=== PATIENT | male | born 1975 | race Caucasian/White ===

== ENCOUNTER 2021-11-25 15:40 | Observation (INO) | payer OTHER ==
--- NOTE | 2021-11-25 16:34 | ED Physician Documentation ---
History of Present Illness - Stated complaint Stated Complaint: TIRED,HEADACHES,SWOLLEN FEET - Chief complaint Chief Complaint: General - History obtained from History obtained from: Patient - History of Present Illness Pain level max: 0 Pain level now: 0 - Additonal information Additional information: Patient is a 46-year-old male who was sent in by the walk-in clinic for a hemoglobin of 4 on blood draw. He states that he has had chronic hemorrhoids that bleed 3-4 times per week. He states he has been tired and weak. He has never had a colonoscopy. He states usually there is bright red blood in the hemorrhoids bleed, but occasionally will have dark blood in his stool. He rarely uses alcohol. Occasionally uses aspirin. Nothing seems to make it better or worse. Has never needed a blood transfusion. Has never had iron levels checked. Review of Systems Ten Systems: 10 systems reviewed and negative Constitutional: denies: Fever, Chills Cardiac: denies: Chest pain / pressure, Palpitations Respiratory: denies: Dyspnea, Cough GI: denies: Abdominal Pain, Vomiting, Diarrhea, Hematemesis Skin: denies: Rash Musculoskeletal: denies: Neck pain, Back pain Neurologic: reports: Generalized weakness. denies: Headache PD PAST MEDICAL HISTORY - Past Medical History Past Medical History: No - Past Surgical History Past Surgical History: No - Present Medications Home Medications: Ambulatory Orders Medication Instructions Recorded Confirmed No Known Home Medications 11/25/21 11/25/21 - Allergies Allergies/Adverse Reactions: Allergies Allergy/AdvReac Type Severity Reaction Status Date / Time No Known Drug Allergies Allergy Verified 11/25/21 15:56 - Living Situation Living Situation: reports: With family Living Arrangement: reports: At home - Social History Does the pt smoke?: No Does the pt drink ETOH?: Yes Does the pt have substance abuse?: No - Family History Family history: reports: Non contributory PD ED PE NORMAL - Vitals Vital signs reviewed: Yes - General General: Alert and oriented X 3, No acute distress, Well developed/nourished - HEENT HEENT: PERRL, Moist mucous membranes - Neck Neck: Supple, no meningeal sign - Cardiac Cardiac: RRR, No murmur, Strong equal pulses - Respiratory Respiratory: No respiratory distress, Clear bilaterally - Abdomen Abdomen: Normal bowel sounds, Soft, Non tender, Non distended - Rectal Rectal: Other (no stool in rectal vault) - Derm Derm: Warm and dry - Extremities Extremities: No edema - Neuro Neuro: Alert and oriented X 3 - Psych Psych: Normal mood, Normal affect Results - Vitals Vitals: Vital Signs - 24 hr 11/25/21 11/25/21 15:57 16:03 Temperature 37.1 C 37.1 C Heart Rate 91 91 Respiratory 18 18 Rate Blood Pressure 105/41 L 105/41 L O2 Saturation 100 100 Oxygen O2 Source Room air - Labs Labs: Laboratory Tests 11/25/21 11/25/21 11/25/21 16:29 16:29 16:29 WBC 6.9 RBC 2.49 L Hgb 4.0 L* Hct 16.0 L* MCV 64.3 L MCH 16.1 L MCHC 25.0 L RDW 24.3 H Plt Count 386 Reticulocyte % (Auto) 0.80 Neut # (Auto) 5.4 Lymph # (Auto) 0.8 L [place] # (Auto) 0.5 Eos # (Auto) 0.0 Baso # (Auto) 0.1 Absolute Nucleated RBC 0.03 Nucleated RBC % 0.4 Manual Slide Review Indicated WBC Morphology NORMAL APPEARANCE Platelet Estimate NORMAL (130-450,000) Platelet Morphology NORMAL APPEARANCE RBC Morph Micro Appear 1+ SCHISTOCYTES Absolute Retic 0.020 PT 13.6 H INR 1.2 Sodium Potassium Chloride Carbon Dioxide Anion Gap BUN Creatinine Estimated GFR (MDRD) Glucose Calcium Iron TIBC % Saturation Transferrin Total Bilirubin AST ALT Alkaline Phosphatase Total Protein Albumin Globulin Albumin/Globulin Ratio Lipase Nasal Adenovirus (PCR) Nasal B. parapertussis DNA (PCR) Nasal Coronavir 229E PCR Nasal Coronavir HKU1 PCR Nasal Coronavir NL63 PCR Nasal Coronavir OC43 PCR Nasal Enterovir/Rhinovir PCR Nasal Influenza B PCR Nasal Influenza A PCR Nasal Parainfluen 1 PCR Nasal Parainfluen 2 PCR Nasal Parainfluen 3 PCR Nasal Parainfluen 4 PCR Nasal RSV (PCR) Nasal B.pertussis DNA PCR Nasal C.pneumoniae (PCR) Sergio Human Metapneumo PCR Nasal M.pneumoniae (PCR) Nasal SARS-CoV-2 (PCR) Blood Type AB POSITIVE Blood Type Recheck Antibody Screen NEGATIVE Crossmatch IS Only See Detail 11/25/21 11/25/21 11/25/21 16:29 16:44 16:45 WBC RBC Hgb Hct MCV MCH MCHC RDW Plt Count Reticulocyte % (Auto) Neut # (Auto) Lymph # (Auto) [place] # (Auto) Eos # (Auto) Baso # (Auto) Absolute Nucleated RBC Nucleated RBC % Manual Slide Review WBC Morphology Platelet Estimate Platelet Morphology RBC Morph Micro Appear Absolute Retic PT INR Sodium 134 L Potassium 3.7 Chloride 104 Carbon Dioxide 24 Anion Gap 6.0 BUN 8 Creatinine 0.8 Estimated GFR (MDRD) 105 Glucose 94 Calcium 8.5 Iron 9 L TIBC 448 % Saturation 2 L Transferrin 320 Total Bilirubin 0.5 AST 17 ALT 13 Alkaline Phosphatase 57 Total Protein 6.4 L Albumin 4.0 Globulin 2.4 Albumin/Globulin Ratio 1.7 Lipase 34 Nasal Adenovirus (PCR) NOT DETECTED Nasal B. parapertussis DNA (PCR) NOT DETECTED Nasal Coronavir 229E PCR NOT DETECTED Nasal Coronavir HKU1 PCR NOT DETECTED Nasal Coronavir NL63 PCR NOT DETECTED Nasal Coronavir OC43 PCR NOT DETECTED Nasal Enterovir/Rhinovir PCR NOT DETECTED Nasal Influenza B PCR NOT DETECTED Nasal Influenza A PCR NOT DETECTED Nasal Parainfluen 1 PCR NOT DETECTED Nasal Parainfluen 2 PCR NOT DETECTED Nasal Parainfluen 3 PCR NOT DETECTED Nasal Parainfluen 4 PCR NOT DETECTED Nasal RSV (PCR) NOT DETECTED Nasal B.pertussis DNA PCR NOT DETECTED Nasal C.pneumoniae (PCR) NOT DETECTED Sergio Human Metapneumo PCR NOT DETECTED Nasal M.pneumoniae (PCR) NOT DETECTED Nasal SARS-CoV-2 (PCR) NOT DETECTED Blood Type Blood Type Recheck AB POSITIVE Antibody Screen Crossmatch IS Only PD MEDICAL DECISION MAKING - ED course Complexity details: reviewed results, re-evaluated patient, considered differential, d/w patient ED course: Patient with severe anemia, likely from chronic blood loss. He will need several units of blood. He will need a colonoscopy and endoscopy at some point, but does not initially have to be during this admission. Rectal exam does not reveal any stool or blood in the rectal vault. Discussed the case with Dr. Negrete, hospitalist who accepts This document was made in part using voice recognition software. While efforts are made to proofread this document, sound alike and grammatical errors may occur. Departure - Departure Disposition: ED Place in Observation Clinical Impression: Severe anemia Condition: Stable Discharge Date/Time: 11/25/21 17:36
[2021-11-25 16:39] LABS: BASOPHILS # (AUTO) 0.1 10^3/uL (0.0-0.1); BASOPHILS % (AUTO) 0.7 %; EOSINOPHILS % (AUTO) 0.6 %; LYMPHOCYTES # (AUTO) 0.8 10^3/uL (1.5-3.5); LYMPHOCYTES % (AUTO) 12.1 %; MEAN CORPUSCULAR HEMOGLOBIN 16.1 pg (27.0-31.0); MEAN CORPUSCULAR VOLUME 64.3 fL (80.0-94.0); MONOCYTES # (AUTO) 0.5 10^3/uL (0.0-1.0); MONOCYTES % (AUTO) 7.7 %; NEUTROPHILS # (AUTO) 5.4 10^3/uL (1.5-6.6); NEUTROPHILS % (AUTO) 78.5 %; NRBC ABSOLUTE COUNT (AUTO) 0.03 x10^3/uL; NUCLEATED RED BLOOD CELLS AUTO 0.4 /100WBC; RED BLOOD COUNT 2.49 10^6/uL (4.70-6.10); RED CELL DISTRIBUTION WIDTH 24.3 % (12.0-15.0); WHITE BLOOD COUNT 6.9 x10^3/uL (4.8-10.8)
[2021-11-25 16:46] LABS: INR 1.2 (0.8-1.2); PT - PROTHROMBIN TIME 13.6 secs (9.9-12.6)
[2021-11-25] MEDS ORDERED: oxyCODONE 5 MG TABLET PO PRN (17:04)
[2021-11-25] MEDS ORDERED: ONDANSETRON 4 MG/2 ML VIAL IVP PRN (17:04)
[2021-11-25] MEDS ORDERED: ONDANSETRON ODT 4 MG TABLET TL PRN (17:04)
[2021-11-25] MEDS ORDERED: SODIUM CHLORIDE FLUSH 0.9% 10 ML SYRINGE IVP PRN (17:04)
--- NOTE | 2021-11-25 17:14 | HISTORY & PHYSICAL EXAMINATION ---
Chief Complaint - Chief Complaint Chief Complaint: rectal bleeding with severe fatigue History of Present Illness - Admitted From Admitted From:: home - History Obtained From Records Reviewed: [facility] History obtained from: patient and Dr. Banks Exam Limitations: none - History of Present Illness HPI Comment/Other: The patient is not usually followed by any medical provider. He regards himself is pretty healthy and has not seen a provider in years. He went to our hospitals walk-in clinic today complaining of on and off fatigue, headaches, and muscle soreness for the last 2 months. His feet are starting to swell. He is a frequent runner. After running, his heart seems like it is beating harder than usual this last couple of weeks. He is able to lay flat at night. He has had no change in bowel or bladder habits. He denies chest pain, left arm pain, left neck pain or nausea after exertion. However, he has had almost daily rectal bleeding for years adn the men in his family do this he tells me. Dad did have colon cancer with resection. He has been told that he has hemorrhoids. It is p ainless. There is no associated sweats, weight loss with this. In the walk in their clinic blood pressure was 94/52. Heart rate 82-minute. Other than they described him as slightly pale with yellow/jaundice you, he had no other findings on physical examination. TSH was 1.17. BNP 186. White cell count 8.0. Hemoglobin 4.1. The patient was called with his lab work and asked to please go to the emergency room. In our emergency room temperature is 37.1. Heart rate 91. Blood pressure 105/4 1. Respirations 18. And 100% on room air. He is 6 feet 1 inches tall and weighs 71.21 kg. Our blood work shows a hemoglobin of 4. Hematocrit 16. MCV 64. White cell count 6.9. We are now being asked to place him in observation our service and transfuse him enough that he is above the cutoff criteria. We do not have general surgery services today. We are on divert for surgery. As such expectation is simple transfusion and he will need to have an outpatient work-up for his anemia starting with an EGD and colonoscopy. 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 Dad is 67 years old. Is overweight, has had a colon resection for colon cancer, and also has chronic rectal bleeding from internal hemorrhoids. 1 brother is an alcoholic and lives in [place] and has rectal bleeding, 1 sister lives in [place] and is completely healthy. He has no children Living arrangement: At home Living Situation: With family Social History Notes: He was once but has been . 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 They all get along well. He rarely drinks. He has no history of cocaine, heroin, methamphetamine abuse. He used to smoke when he was in college but he was only college for a year. If he did smoke it was 1 cigarette a few times a week. 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 - Substance History Use: Uses substance without health or social issues: NONE Abuse: Recurrent use of substance despite neg consequences: NONE Dependence: Experiences withdrawal or developed tolerances: NONE - POLST Patient has POLST: No POLST Status: Full Code Meds/Allgy - Home Medications Home Medications: Ambulatory Orders Medication Instructions Recorded Confirmed No Known Home Medications 11/25/21 11/25/21 - Allergies Allergies/Adverse Reactions: Allergies Allergy/AdvReac Type Severity Reaction Status Date / Time No Known Drug Allergies Allergy Verified 11/25/21 15:56 Review of Systems - Constitutional Constitutional: denies: Fatigue, Fever, Chills, Malaise, Weakness, Poor ap petite, Diaphoresis, Night sweats - Eyes Eyes: denies: Pain, Irritation, Amaurosis, Blurred vision, Field loss, Vision loss, Dipolpia - Ears, Nose & Throat Ears, Nose & Throat: denies: Ear pain, Hearing loss, Hearing aids, Tinnitus, Vertigo, Nasal pain, Nasal discharge, Nasal congestion, Postnasal drainage, Dentures, Sore throat - Cardiovascular Cariovascular: reports: Palpitations, Exertional dyspnea, Decr. exercise tolerance. denies: Irregular heart rate, Chest pain, Edema, Syncope - Respiratory Respiratory: denies: Cough, Sputum production, Wheezing, Snoring - Gastrointestinal Gastrointestinal: reports: Rectal bleeding (For close to a decade. Every 2 or 3 days. No change in bleeding pattern. No abdominal pain. No fevers, sweats.). denies: Abdominal pain, Abdominal distention, Constipation, Diarrhea, Change in bowel habits - Genitourinary Genitourinary: reports: Other (Had a UTI 3 to 4 years ago and was seen at [facility] emergency room and treated). denies: Dysuria, Frequency, Urgency, Hematuria - Musculoskeletal Musculoskeletal: denies: Muscle pain, Back pain, Muscle aches, Stiffness - Integumentary Integumentary: denies: Rash, Pruritis, Lesions, Dryness - Neurological Neurological: denies: General weakness, Focal weakness, Headache, Dizziness, Numbness, Memory problems, Pre-existing deficit - Psychiatric Psychiatric: denies: Depression, Anxiety, Suicidal, Delusions, Hallucinations - Endocrine Endocrine: denies: Polyuria, Polydypsia, Polyphagia, Intolerance to cold Prior Level of Functionality: Completely independent with activities of living. Employed full-time. Does not use any durable medical equipment. Exam - Vital Signs Reviewed Vital Signs: Yes Vital Signs: Vital Signs x48h Temp Pulse Resp BP Pulse Ox 11/25/21 16:03 37.1 C 91 18 105/41 L 100 11/25/21 15:57 37.1 C 91 18 105/41 L 100 - Physical Exam General Appearance: positive: No acute distress, Alert, Other (Tall, thin, quiet affect. Slow deliberate speech.) Eyes Bilateral: positive: PERRL ENT: positive: Pharynx nml Neck: positive: No JVD. negative: Stiff neck Respiratory: positive: No respiratory distress. negative: Wheezes, Rales, Rhonchi Cardiovascular: positive: Regular rate & rhythm. negative: Systolic murmur, Gallop/S4, Friction rub Abdomen: positive: Non-tender, No organomegaly, Nml bowel sounds, No distention Skin: positive: No rash, Warm, Dry Extremities: positive: Full ROM. negative: No pedal edema, Pedal edema, Calf tenderness Neurologic/Psychiatric: positive: Oriented x3, CN's nml (2-12), Motor nml, S ensation nml Conclusion/Plan - Problem List (1) Severe anemia Conclusion/Plan: It is unclear how long this patient has been anemic since he has no previous medical records. He is symptomatic with fatigue, shortness of breath. Vital signs are relatively normal other than being mildly hypotensive. Plan: Observation status Transfusion of probably 2 units of packed cells Establish himself with a primary care provider (2) Rectal bleeding Conclusion/Plan: No fever, no chills, no elevated white cell count. No bloody diarrhea. No abdominal pain. It is painless rectal bleeding that has been ongoing for quite some time. As such this patient may have internal hemorrhoids. Less likely would be inflammatory bowel disease but that is always a possibility. He will need an outpatient colonoscopy and EGD. Need to establish himself with a primary care provider who then do the referral. - Lab Results Lab results reviewed: Yes Gopi Bones: 11/25/21 16:29 11/25/21 16:29 Core Measures - Anticipated LOS I expect patient to be DC'd or transferred within 96 hours.: Yes - DVT/VTE - Prophylaxis VTE/DVT Device ordered at admit?: Yes
[2021-11-25 17:17] LABS: PLT - PLATELET COUNT 386 10^3/uL (130-450)
[2021-11-25 17:18] LABS: PLATELET ESTIMATE, MANUAL NORMAL (130-450,000) (NORMAL); PLATELET MORPHOLOGY NORMAL APPEARANCE (NORMAL); SLIDE REVIEW? Indicated
[2021-11-25 17:19] LABS: WBC MORPHOLOGY (MULTIPLE) NORMAL APPEARANCE (NORMAL)
[2021-11-25 17:40] LABS: ALBUMIN/GLOBULIN RATIO 1.7 (1.0-2.2); BILIRUBIN,TOTAL 0.5 mg/dL (0.2-1.0); CALCIUM 8.5 mg/dL (8.5-10.3); CREATININE 0.8 mg/dL (0.6-1.2); POTASSIUM 3.7 mmol/L (3.5-5.0); TOTAL PROTEIN 6.4 g/dL (6.7-8.2)
--- NOTE | 2021-11-25 17:43 | PHARMACY PROGRESS NOTE ---
- Best Possible Medication History Admit Date and Time: 11/25/21 1709 Processed by: Nursing Medication History completed: Yes Patient Interview: Pt interview ONLY source As the person ultimately responsible for medication therapy, providers are able to order a medication from an existing home medication list in [facility] via the "Reconcile Routine" prior to Confirmation of that medication by community support associate. Such practice is discouraged except when the physician, in their clinical judgment, deems that a medical need exists for a medication without regard to previous use.
[2021-11-25 17:53] LABS: CORONAVIRUS 229E-RESP PCR NOT DETECTED; CORONAVIRUS HKU1-RESP PCR NOT DETECTED; CORONAVIRUS NL63-RESP PCR NOT DETECTED; CORONAVIRUS OC43-RESP PCR NOT DETECTED
[2021-11-25 17:54] LABS: B. PARAPERTUSSIS- RESP PCR PAN NOT DETECTED; B. PERTUSSIS- RESP PCR PANEL NOT DETECTED; C. PNEUMONIAE- RESP PCR PANEL NOT DETECTED; HUMAN METAPNEUMOVIRUS NOT DETECTED; INFLUENZA A- RESP PCR PANEL NOT DETECTED; INFLUENZA B - RESP PCR PANEL NOT DETECTED; M. PNEUMONIAE- RESP PCR PANEL NOT DETECTED; PARAINFLUENZA VIRUS 1 NOT DETECTED; PARAINFLUENZA VIRUS 2 NOT DETECTED; PARAINFLUENZA VIRUS 3 NOT DETECTED; PARAINFLUENZA VIRUS 4 NOT DETECTED; RHINOVIRUS/ENTEROVIRUS NOT DETECTED; RSV- RESP PCR PANEL NOT DETECTED; SARS-CoV-2 -RESP PCR PANEL NOT DETECTED
[2021-11-25] MEDS: ACETAMINOPHEN 325 MG TABLET PO PRN (19:38)
[2021-11-25] MEDS: NS W/20 MEQ KCL 1,000 ML IV SCH (21:33)
[2021-11-25 23:18] LABS: HGB - HEMOGLOBIN 4.5 g/dL (14.0-18.0)
[2021-11-26] MEDS: SODIUM CHLORIDE FLUSH 0.9% 10 ML SYRINGE IVP SCH ×4 (01:40→23:52)
[2021-11-26] MEDS: NS W/20 MEQ KCL 1,000 ML IV SCH ×2 (04:01→16:01)
[2021-11-26] MEDS: ACETAMINOPHEN 325 MG TABLET PO PRN (07:32)
[2021-11-26 07:35] LABS: CALCIUM 8.1 mg/dL (8.5-10.3); CREATININE 0.8 mg/dL (0.6-1.2); POTASSIUM 3.9 mmol/L (3.5-5.0)
[2021-11-26 07:37] LABS: BASOPHILS # (AUTO) 0.1 10^3/uL (0.0-0.1); BASOPHILS % (AUTO) 1.2 %; EOSINOPHILS # (AUTO) 0.1 10^3/uL (0.0-0.7); EOSINOPHILS % (AUTO) 0.8 %; HCT - HEMATOCRIT 21.9 % (42.0-52.0); LYMPHOCYTES # (AUTO) 1.3 10^3/uL (1.5-3.5); MEAN CORPUSCULAR HEMOGLOBIN 19.5 pg (27.0-31.0); MEAN CORPUSCULAR HGB CONC 28.3 g/dL (32.0-36.0); MEAN CORPUSCULAR VOLUME 68.9 fL (80.0-94.0); MONOCYTES # (AUTO) 0.7 10^3/uL (0.0-1.0); MONOCYTES % (AUTO) 8.2 %; NEUTROPHILS # (AUTO) 6.6 10^3/uL (1.5-6.6); NEUTROPHILS % (AUTO) 74.5 %; NRBC ABSOLUTE COUNT (AUTO) 0.04 x10^3/uL; NUCLEATED RED BLOOD CELLS AUTO 0.5 /100WBC; PLT - PLATELET COUNT 338 10^3/uL (130-450); RED BLOOD COUNT 3.18 10^6/uL (4.70-6.10); RED CELL DISTRIBUTION WIDTH 26.1 % (12.0-15.0); WHITE BLOOD COUNT 8.8 x10^3/uL (4.8-10.8)
[2021-11-26 08:11] LABS: HGB - HEMOGLOBIN 6.2 g/dL (14.0-18.0); SLIDE REVIEW? Indicated
[2021-11-26 08:38] LABS: PLATELET ESTIMATE, MANUAL NORMAL (130-450,000) (NORMAL); PLATELET MORPHOLOGY NORMAL APPEARANCE (NORMAL); WBC MORPHOLOGY (MULTIPLE) NORMAL APPEARANCE (NORMAL)
--- NOTE | 2021-11-26 09:03 | PROVIDER PROGRESS NOTE ---
Assessment/Plan - Problem List (1) Severe anemia Assessment/Plan: Secondary to rectal bleeding from hemorrhoids. Hemoglobin at time of admission was 4.0 with a hematocrit of 16. After 3 units of packed red blood cells patient's hemoglobin was 6.2. He is being transfused 2 more units of packed red blood cells. Anticipate discharge on 11/27/2020. (2) Rectal bleeding Assessment/Plan: Secondary to hemorrhoids. Patient has had chronic bleeding related to hemorrhoids. He has been advised to establish with a primary care physician who in turn will refer him to a surgeon for elective surgery. (3) Hemorrhoids Assessment/Plan: Patient has had chronic bleeding related to hemorrhoids. He has been advised to establish with a primary care physician who in turn will refer him to a surgeon for elective surgery. He has been advised to use Preparation H as needed as well as increased fiber in his diet to minimize straining and also to keep hydrated. - Current Meds Current Meds: Current Medications Generic Name Dose Route Start Last Admin Trade Name Freq PRN Reason Stop Dose Admin Acetaminophen 650 mg 11/25/21 17:04 11/26/21 07:32 Acetaminophen 325 Mg Tablet PO 650 mg Q4HR PRN Administration Pain 1 to 4, or Fever Potassium Chloride/Sodium Chloride 1,000 mls @ 100 mls/hr 11/25/21 18:00 11/26/21 06:20 Normal Saline 0.9% W/20 Meq Kcl IV 100 mls/hr .Q10H FELIZ Infusion Sodium Chloride 10 ml 11/26/21 01:00 11/26/21 07:33 Sodium Chloride Flush 0.9% 10 Ml Syringe IVP 10 ml 0100,0900,1700 [facility] Administration - Lab Result Fish Bone Diagrams: 11/26/21 07:19 11/26/21 07:19 - Additional Planning My Orders: My Active Orders 11/26/21 09:00 Transfuse RBCs Leukoreduced [RC] .ONCE RBC, LEUKOREDUCED Stat TYPE AND SCREEN Stat 11/26/21 16:00 CBC - COMP BLD CT W/AUTO DIFF [HEME] Timed Subjective - Subjective Patient Reports: Other (He was seated in the bedside recliner at time of visit. Denied any complaints. He has not had another bowel movement since yesterday. Denies dizziness, lightheadedness or dyspnea.) Objective Vital Signs: Vital Signs - 24 hr 11/25/21 11/25/21 11/25/21 15:57 16:03 17:37 Temperature 37.1 C 37.1 C 36.2 C L Heart Rate 91 91 Heart Rate [ 79 Brachial] Respiratory 18 18 16 Rate Blood Pressure 105/41 L 105/41 L Blood Pressure [Left Brachial artery] Blood Pressure 100/52 L [Right Brachial artery] O2 Saturation 100 100 100 11/25/21 11/25/21 11/25/21 18:09 18:30 21:30 Temperature 36.2 C L 36.7 C 36.5 C Heart Rate 80 81 75 Heart Rate [ Brachial] Respiratory 20 20 18 Rate Blood Pressure 107/54 L 101/56 L 97/51 L Blood Pressure [Left Brachial artery] Blood Pressure [Right Brachial artery] O2 Saturation 11/25/21 11/25/21 11/25/21 21:38 23:14 23:51 Temperature 36.5 C 36.6 C 36.9 C Heart Rate 86 Heart Rate [ 75 71 Brachial] Respiratory 18 18 18 Rate Blood Pressure 106/54 L Blood Pressure 97/51 L 100/47 L [Left Brachial artery] Blood Pressure [Right Brachial artery] O2 Saturation 100 99 11/26/21 11/26/21 11/26/21 00:08 03:12 03:17 Temperature 36.7 C 36.6 C 36.6 C Heart Rate 75 84 84 Heart Rate [ Brachial] Respiratory 20 16 16 Rate Blood Pressure 101/51 L 101/54 L 101/54 L Blood Pressure [Left Brachial artery] Blood Pressure [Right Brachial artery] O2 Saturation 11/26/21 11/26/21 11/26/21 03:40 06:19 06:20 Temperature 36.9 C 37.1 C 37.1 C Heart Rate 82 64 Heart Rate [ 82 64 Brachial] Respiratory 16 16 16 Rate Blood Pressure 100/59 L 98/54 L Blood Pressure 100/59 L 98/54 L [Left Brachial artery] Blood Pressure [Right Brachial artery] O2 Saturation 11/26/21 07:14 Temperature 36.8 C Heart Rate Heart Rate [ 75 Brachial] Respiratory 16 Rate Blood Pressure Blood Pressure 96/50 L [Left Brachial artery] Blood Pressure [Right Brachial artery] O2 Saturation 97 Oxygen O2 Source Room air I&O (Last 24 Hrs): Intake and Output Totals x24h 11/24/21 11/25/2122 23:59 23:59 23:59 Intake Total 0392.676 7590 Balance 5136.564 5516 General: Alert, Oriented x3, No acute distress HEENT: PERRLA, EOMI Neck: Supple, No JVD Neuro: Alert, Oriented Times 3 Cardiovascular: Regular rate, Normal S1, Normal S2 Respiratory: Chest non-tender, No respiratory distress, Breath sounds nml Abdomen: Normal bowel sounds, Soft, No tenderness Rectal: Bloody Stool, Hemorrhoid Extremities: No clubbing, No cyanosis, No edema Skin: No rashes, No breakdown, No significant lesion - Results Results: Laboratory Results WBC 8.8 x10^3/uL (4.8-10.8) 11/26/21 07:19 RBC 3.18 10^6/uL (4.70-6.10) L 11/26/21 07:19 Hgb 6.2 g/dL (14.0-18.0) L* 11/26/21 07:19 Hct 21.9 % (42.0-52.0) L 11/26/21 07:19 MCV 68.9 fL (80.0-94.0) L 11/26/21 07:19 MCH 19.5 pg (27.0-31.0) L 11/26/21 07:19 MCHC 28.3 g/dL (32.0-36.0) L 11/26/21 07:19 RDW 26.1 % (12.0-15.0) H 11/26/21 07:19 Plt Count 338 10^3/uL (130-450) 11/26/21 07:19 Reticulocyte % (Auto) 0.80 % (0.5-2.3) 11/25/21 16:29 Neut # (Auto) 6.6 10^3/uL (1.5-6.6) 11/26/21 07:19 Lymph # (Auto) 1.3 10^3/uL (1.5-3.5) L 11/26/21 07:19 [place] # (Auto) 0.7 10^3/uL (0.0-1.0) 11/26/21 07:19 Eos # (Auto) 0.1 10^3/uL (0.0-0.7) 11/26/21 07:19 Baso # (Auto) 0.1 10^3/uL (0.0-0.1) 11/26/21 07:19 Absolute Nucleated RBC 0.04 x10^3/uL 11/26/21 07:19 Nucleated RBC % 0.5 /100WBC 11/26/21 07:19 Manual Slide Review Indicated 11/26/21 07:19 WBC Morphology NORMAL APPEARANCE (NORMAL) 11/26/21 07: Platelet Estimate NORMAL (130-450,000) (NORMAL) 11/26/21 07:19 Platelet Morphology NORMAL APPEARANCE (NORMAL) 11/26/21 07:19 RBC Morph Micro Appear 4+ ANISOCYTOSIS (NORMAL) 1+ POLYCHROMASIA (NORMAL) 1+ OVALOCYTES (NORMAL) 1+ MICROCYTOSIS (NORMAL) 11/26/21 07:19 RBC Morph Micro Appear 4+ ANISOCYTOSIS (NORMAL) 1+ POLYCHROMASIA (NORMAL) 1+ OVALOCYTES (NORMAL) 1+ MICROCYTOSIS (NORMAL) 11/26/21 07:19 RBC Morph Micro Appear 4+ ANISOCYTOSIS (NORMAL) 1+ POLYCHROMASIA (NORMAL) 1+ OVALOCYTES (NORMAL) 1+ MICROCYTOSIS (NORMAL) 11/26/21 07:19 RBC Morph Micro Appear 4+ ANISOCYTOSIS (NORMAL) 1+ POLYCHROMASIA (NORMAL) 1+ OVALOCYTES (NORMAL) 1+ MICROCYTOSIS (NORMAL) 11/26/21 07:19 Absolute Retic 0.020 10^6/uL (0.020-0.110) 11/25/21 16:29 PT 13.6 secs (9.9-12.6) H 11/25/21 16:29 INR 1.2 (0.8-1.2) 11/25/21 16:29 Sodium 134 mmol/L (135-145) L 11/26/21 07:19 Potassium 3.9 mmol/L (3.5-5.0) 11/26/21 07:19 Chloride 105 mmol/L (101-111) 11/26/21 07:19 Carbon Dioxide 23 mmol/L (21-32) 11/26/21 07:19 Anion Gap 6.0 (6-13) 11/26/21 07:19 BUN 8 mg/dL (6-20) 11/26/21 07:19 Creatinine 0.8 mg/dL (0.6-1.2) 11/26/21 07:19 Estimated GFR (MDRD) 105 (>89) 11/26/21 07:19 Glucose 94 mg/dL (70-100) 11/26/21 07:19 Calcium 8.1 mg/dL (8.5-10.3) L 11/26/21 07:19 Iron 9 ug/dL (45-182) L 11/25/21 16:29 TIBC 448 ug/dL (250-450) 11/25/21 16:29 % Saturation 2 % (20-50) L 11/25/21 16:29 Transferrin 320 mg/dL (180-329) 11/25/21 16:29 Total Bilirubin 0.5 mg/dL (0.2-1.0) 11/25/21 16:29 AST 17 IU/L (10-42) 11/25/21 16:29 ALT 13 IU/L (10-60) 11/25/21 16:29 Alkaline Phosphatase 57 IU/L (42-121) 11/25/21 16:29 Total Protein 6.4 g/dL (6.7-8.2) L 11/25/21 16:29 Albumin 4.0 g/dL (3.2-5.5) 11/25/21 16:29 Globulin 2.4 g/dL (2.1-4.2) 11/25/21 16:29 Albumin/Globulin Ratio 1.7 (1.0-2.2) 11/25/21 16:29 Lipase 34 U/L (22-51) 11/25/21 16:29 Nasal Adenovirus (PCR) NOT DETECTED 11/25/21 16:44 Nasal B. parapertussis DNA (PCR) NOT DETECTED 11/25/21 16:44 Nasal Coronavir 229E PCR NOT DETECTED 11/25/21 16:44 Nasal Coronavir HKU1 PCR NOT DETECTED 11/25/21 16:44 Nasal Coronavir NL63 PCR NOT DETECTED 11/25/21 16:44 Nasal Coronavir OC43 PCR NOT DETECTED 11/25/21 16:44 Nasal Enterovir/Rhinovir PCR NOT DETECTED 11/25/21 16:44 Nasal Influenza B PCR NOT DETECTED 11/25/21 16:44 Nasal Influenza A PCR NOT DETECTED 11/25/21 16:44 Nasal Parainfluen 1 PCR NOT DETECTED 11/25/21 16:44 Nasal Parainfluen 2 PCR NOT DETECTED 11/25/21 16:44 Nasal Parainfluen 3 PCR NOT DETECTED 11/25/21 16:44 Nasal Parainfluen 4 PCR NOT DETECTED 11/25/21 16:44 Nasal RSV (PCR) NOT DETECTED 11/25/21 16:44 Nasal B.pertussis DNA PCR NOT DETECTED 11/25/21 16:44 Nasal C.pneumoniae (PCR) NOT DETECTED 11/25/21 16:44 Sergio Human Metapneumo PCR NOT DETECTED 11/25/21 16:44 Nasal M.pneumoniae (PCR) NOT DETECTED 11/25/21 16:44 Nasal SARS-CoV-2 (PCR) NOT DETECTED 11/25/21 16:44 Blood Type AB POSITIVE 11/25/21 16:29 Blood Type Recheck AB POSITIVE 11/25/21 16:45 Antibody Screen NEGATIVE 11/25/21 16:29 Crossmatch IS Only See Detail 11/25/21 16:29 ABX Reporting Has patient been on IV antibiotics over the past 48 hours?: No
[2021-11-26 16:14] LABS: BASOPHILS # (AUTO) 0.2 10^3/uL (0.0-0.1); BASOPHILS % (AUTO) 1.8 %; EOSINOPHILS # (AUTO) 1.6 10^3/uL (0.0-0.7); EOSINOPHILS % (AUTO) 17.2 %; HCT - HEMATOCRIT 26.8 % (42.0-52.0); LYMPHOCYTES # (AUTO) 1.1 10^3/uL (1.5-3.5); LYMPHOCYTES % (AUTO) 12.1 %; MEAN CORPUSCULAR HEMOGLOBIN 21.4 pg (27.0-31.0); MEAN CORPUSCULAR HGB CONC 29.9 g/dL (32.0-36.0); MEAN CORPUSCULAR VOLUME 71.8 fL (80.0-94.0); MONOCYTES # (AUTO) 0.8 10^3/uL (0.0-1.0); MONOCYTES % (AUTO) 8.8 %; NEUTROPHILS # (AUTO) 5.6 10^3/uL (1.5-6.6); NEUTROPHILS % (AUTO) 59.6 %; NRBC ABSOLUTE COUNT (AUTO) 0.08 x10^3/uL; NUCLEATED RED BLOOD CELLS AUTO 0.9 /100WBC; PLT - PLATELET COUNT 381 10^3/uL (130-450); RED BLOOD COUNT 3.73 10^6/uL (4.70-6.10); RED CELL DISTRIBUTION WIDTH 26.2 % (12.0-15.0); WHITE BLOOD COUNT 9.3 x10^3/uL (4.8-10.8)
[2021-11-26 17:09] LABS: SLIDE REVIEW? Indicated
[2021-11-26 17:17] LABS: PLATELET ESTIMATE, MANUAL NORMAL (130-450,000) (NORMAL); PLATELET MORPHOLOGY NORMAL APPEARANCE (NORMAL)
[2021-11-27] MEDS: NS W/20 MEQ KCL 1,000 ML IV SCH (03:05)
[2021-11-27 06:18] LABS: BASOPHILS # (AUTO) 0.1 10^3/uL (0.0-0.1); BASOPHILS % (AUTO) 1.6 %; EOSINOPHILS # (AUTO) 0.1 10^3/uL (0.0-0.7); EOSINOPHILS % (AUTO) 1.6 %; HCT - HEMATOCRIT 26.1 % (42.0-52.0); HGB - HEMOGLOBIN 7.6 g/dL (14.0-18.0); LYMPHOCYTES # (AUTO) 1.8 10^3/uL (1.5-3.5); LYMPHOCYTES % (AUTO) 21.6 %; MEAN CORPUSCULAR HEMOGLOBIN 20.8 pg (27.0-31.0); MEAN CORPUSCULAR HGB CONC 29.1 g/dL (32.0-36.0); MEAN CORPUSCULAR VOLUME 71.5 fL (80.0-94.0); MONOCYTES # (AUTO) 0.8 10^3/uL (0.0-1.0); MONOCYTES % (AUTO) 9.4 %; NEUTROPHILS # (AUTO) 5.4 10^3/uL (1.5-6.6); NEUTROPHILS % (AUTO) 65.3 %; NRBC ABSOLUTE COUNT (AUTO) 0.04 x10^3/uL; NUCLEATED RED BLOOD CELLS AUTO 0.5 /100WBC; PLT - PLATELET COUNT 368 10^3/uL (130-450); RED BLOOD COUNT 3.65 10^6/uL (4.70-6.10); RED CELL DISTRIBUTION WIDTH 26.7 % (12.0-15.0); WHITE BLOOD COUNT 8.3 x10^3/uL (4.8-10.8)
[2021-11-27 06:24] LABS: CALCIUM 8.5 mg/dL (8.5-10.3); CREATININE 0.8 mg/dL (0.6-1.2); POTASSIUM 4.1 mmol/L (3.5-5.0)
[2021-11-27 07:08] LABS: SLIDE REVIEW? Indicated
[2021-11-27] MEDS: SODIUM CHLORIDE FLUSH 0.9% 10 ML SYRINGE IVP SCH (08:11)
--- NOTE | 2021-11-27 08:40 | DISCHARGE SUMMARY ---
Discharge Summary Admit Date: 11/25/21 Discharge Date: 11/27/21 Discharging Provider: Gertrude Mireles Primary Care Provider: No primary physician Code Status: Attempt Resuscitation Condition at Discharge: Stable Discharge Disposition: 01 Home, Self Care - DIAGNOSES Admission Diagnoses: Severe anemia Rectal bleeding Discharge Diagnoses with Status of Each Condition: Severe anemia: 2/2 Rectal bleeding from hemorrhoids. s/p 6 units of PRBC transfused Rectal bleeding: Acute on Chronic. 2/2 Hemorrhoids. Stable. Transfused PRBC. To follow up with PCP for general surgery referral. - HPI History of Present Illness: The patient is not usually followed by any medical provider. He regards himself is pretty healthy and has not seen a provider in years. He went to our hospitals walk-in clinic today complaining of on and off fatigue, headaches, and muscle soreness for the last 2 months. His feet are starting to swell. He is a frequent runner. After running, his heart seems like it is beating harder than usual this last couple of weeks. He is able to lay flat at night. He has had no change in bowel or bladder habits. He denies chest pain, left arm pain, left neck pain or nausea after exertion. However, he has had almost daily rectal bleeding for years adn the men in his family do this he tells me. Dad did have colon cancer with resection. He has been told that he has hemorrhoids. It is painless. There is no associated sweats, weight loss with this. In the walk in their clinic blood pressure was 94/52. Heart rate 82-minute. Other than they described him as slightly pale with yellow/jaundice you, he had no other findings on physical examination. TSH was 1.17. BNP 186. White cell count 8.0. Hemoglobin 4.1. The patient was called with his lab work and asked to please go to the emergency room. In our emergency room temperature is 37.1. Heart rate 91. Blood pressure 105/41. Respirations 18. And 100% on room air. He is 6 feet 1 inches tall and weighs 71.21 kg. Our blood work shows a hemoglobin of 4. Hematocrit 16. MCV 64. White cell count 6.9. We are now being asked to place him in observation our service and transfuse him enough that he is above the cutoff criteria. We do not have general surgery services today. We are on divert for surgery. As such expectation is simple transfusion and he will need to have an outpatient work-up for his anemia starting with an EGD and colonoscopy. - HOSPITAL COURSE Hospital Course: He was transfused a total of 6 units of packed red blood cells for the cause of his hospital stay. After the fifth unit his hemoglobin was 8. The following morning it was 7.6 th us the last unit was administered before discharge. By discharge hemoglobin was 8.8. For over 36 hours prior to discharge he had not experienced any more rectal bleeding. He has been advised to increase fiber in his diet and keep hydrated regularly so as to minimize straining during bowel movements. He has also been advised to establish care with a primary care physician. It is expected that the primary care physician would then refer him to general surgery for an outpatient elective surgery addressing his hemorrhoids. He expressed understanding to this and was agreeable. He was discharged in stable condition. - ALLERGIES Allergies/Adverse Reactions: Allergies Allergy/AdvReac Type Severity Reaction Status Date / Time No Known Drug Allergies Allergy Verified 11/25/21 15:56 - MEDICATIONS Home Medications: Ambulatory Orders Medication Instructions Recorded Confirmed No Known Home Medications 11/25/21 11/25/21 - PHYSICAL EXAM AT DISCHARGE General Appearance: positive: No acute distress, Alert Eyes Bilateral: positive: PERRL, EOMI ENT: positive: No signs of dehydration Neck: positive: No JVD, Trachea midline Respiratory: positive: Chest non-tender, No respiratory distress, Breath sounds nml. negative: Wheezes, Rales, Rhonchi Cardiovascular: positive: Regular rate & rhythm, No murmur Abdomen: positive: Non-tender, No organomegaly, Nml bowel sounds, No distention. negative: Guarding, Rebound Back: positive: Nml inspection Skin: positive: Color nml, No rash, Warm, Dry Extremities: positive: Non-tender, Full ROM, Nml appearance, No pedal edema Neurologic/Psychiatric: positive: Oriented x3, Mood/affect nml - LABS Result Diagrams: 11/27/21 12:32 11/27/21 05:59 - TIME SPENT Time Spent in Discharge (Minutes): 15
--- NOTE | 2021-11-27 08:43 | Discharge Plan ---
Discharge Plan Problem Reviewed?: Yes Disposition: Home, Self Care Condition: Stable Diet: Regular Activity Restrictions: Activity as Tolerated Health Concerns: You were admitted on 11/25/2021 with rectal bleeding and severe fatigue. You were noted to have a hemoglobin of 4.0. Rectal bleeding has been a chronic issue due to hemorrhoids. Through the course of your hospital stay you were transfused a total of 6 units of packed red blood cells. Your hemoglobin at discharge was 8.8. You have been advised to establish care with a primary care physician. The primary care physician within make a referral to general surgery for potential elective procedure to address the hemorrhoids. You have been advised to maintain a diet with significant fiber, keep hydrated and you may also use Preparation H for hemorrhoids. By the time of discharge you had not had any rectal bleeding in at least 48 hours. You were discharged in stable condition. The above plan was explained to you, you expressed understanding and agreeable with it. No Smoking: If you smoke, Please STOP! Call for help.
[2021-11-27] MEDS ORDERED: DOCUSATE SODIUM 250 MG CAPSULE PO SCH (09:00)
[2021-11-27] MEDS ORDERED: polyethylene glycoL 3350 17 GM PACKET PO SCH (09:00)
[2021-11-27] MEDS ORDERED: SENNA 8.6 MG TABLET PO SCH (09:00)
[2021-11-27 11:44] VITALS: BP 97/46
[2021-11-27 12:42] LABS: HCT - HEMATOCRIT 30.1 % (42.0-52.0); HGB - HEMOGLOBIN 8.8 g/dL (14.0-18.0); MEAN CORPUSCULAR HEMOGLOBIN 21.5 pg (27.0-31.0); MEAN CORPUSCULAR HGB CONC 29.2 g/dL (32.0-36.0); MEAN CORPUSCULAR VOLUME 73.6 fL (80.0-94.0); PLT - PLATELET COUNT 377 10^3/uL (130-450); RED BLOOD COUNT 4.09 10^6/uL (4.70-6.10); RED CELL DISTRIBUTION WIDTH 26.5 % (12.0-15.0); WHITE BLOOD COUNT 8.9 x10^3/uL (4.8-10.8)
== END 2021-11-27 13:43 | disposition home or self-care (01) ==
LOC: ED 15:40 → MS2 17:04
PROVIDERS: ADMIT Specialist; ATTEND Internal Medicine
DX: K64.9 Unspecified hemorrhoids (principal); D50.0 Iron deficiency anemia secondary to blood loss (chronic); Z20.822 Contact with and (suspected) exposure to COVID-19; Z80.0 Family history of malignant neoplasm of digestive organs
CPT/HCPCS: 0202U; 36415; 36430; 80048; 80053; 83540; 83690; 84466; 85014; 85018; 85025; 85027; 85045; 85610; 86850; 86900; 86901; 86920; 99284; 99285; A9270; G0378; P9016

== ENCOUNTER 2021-12-17 06:04 | Day surgery (SDC) | payer OTHER ==
[2021-12-17] MEDS ORDERED: LACTATED RINGERS 1,000 ML IV ONE ×2 (06:32→08:10)
--- NOTE | 2021-12-17 07:05 | ANESTHESIA ---
Pre-Anesthesia VS, & Labs - Diagnosis anemia - Procedure colonoscopy Vital Signs: Temp Pulse Resp BP Pulse Ox 36.5 C 52 L 16 109/66 100 12/17/21 06:30 12/17/21 06:30 12/17/21 06:30 12/17/21 06:30 12/17/21 06:30 Height: 6 ft 1 in Weight (kg): 68 kg Body Mass Index: 19.8 BMI Classification: Healthy weight - NPO >8 hours - Lab Results Lab results reviewed: Yes Home Medications and Allergies No Known Home Medications 11/25/21 Allergies/Adverse Reactions: Allergies Allergy/AdvReac Type Severity Reaction Status Date / Time No Known Drug Allergies Allergy Verified 12/17/21 06:47 Anes History & Medical History - Anesthetic History Anesthesia Complications: reports: No previous complications Family history of Anesthesia Complications: Denies Family history of Malignant Hyperthermia: Denies - Medical History Cardiovascular: reports: None Pulmonary: reports: None Gastrointestinal: reports: None Urinary: reports: None Neuro: reports: None Musculoskeletal: reports: None Endocrine/Autoimmune: reports: None Skin: reports: None Smoking Status: Never smoker Psychosocial: reports: No issues indicated History of Cancer?: No - Surgical History General: Exam General: Alert, Oriented x3, Cooperative Dental: WNL Mouth Openin Fingerbreadth Neck Mobility: Normal Mallampati classification: II Thyromental Distance: 4-6 cm Respiratory: Lungs clear, Normal breath sounds, No respiratory distress Cardiovascular: Regular rate Neurological: Normal speech Mental/Cognitive Status: Alert/Oriented X3, Normal for patient Cognitive Status: Within normal limits Plan Anesthesia Type: Total IV Consent for Procedure(s) Verified and Reviewed: Yes Code Status: Attempt Resuscitation ASA classification: 1-Healthy patient Is this case an emergency?: No
[2021-12-17] MEDS ORDERED: PROPOFOL 500 MG/50 ML 500 MG/50 ML VIAL ONE (07:21)
--- NOTE | 2021-12-17 08:41 | ANESTHESIA POST OP EVALUATION ---
Anesthesia Post Eval - Post Anesthesia Eval Vitals: Last Vital Signs Temp 36.7 C 12/17/21 08:10 Pulse 72 12/17/21 08:16 Resp 18 12/17/21 08:16 BP 119/82 H 12/17/21 08:16 Pulse Ox 100 12/17/21 08:16 CV Function Including HR & BP: Stable Pain Control: Satisfactory (2/10 pain in throat (sting)) Nausea & Vomiting: Negative Mental Status: Baseline Respiratory Status: Airway Patent Hydration Status: Satisfactory Anesthesia Complications: None
[2021-12-17 08:42] VITALS: BP 106/70
== END 2021-12-17 06:05 | disposition home or self-care (01) ==
LOC: SDS 06:04
PROVIDERS: ATTEND Surgery
PROC: 0DBP8ZZ Excision of Rectum, Via Natural or Artificial Opening Endoscopic (ICD-10-PCS; 2021-12-17)
PROC: 0DBF8ZZ Excision of Right Large Intestine, Via Natural or Artificial Opening Endoscopic (ICD-10-PCS; 2021-12-17)
PROC: 0DBG8ZZ Excision of Left Large Intestine, Via Natural or Artificial Opening Endoscopic (ICD-10-PCS; principal; 2021-12-17 07:30)
DX: D50.0 Iron deficiency anemia secondary to blood loss (chronic) (principal); K57.30 Diverticulosis of large intestine without perforation or abscess without bleeding; K64.1 Second degree hemorrhoids; Z80.0 Family history of malignant neoplasm of digestive organs; Z87.891 Personal history of nicotine dependence
CPT/HCPCS: 45380; J7120

== ENCOUNTER 2021-12-30 08:00 | Outpatient (CLI) | payer OTHER ==
[2021-12-30 17:53] LABS: BASOPHILS # (AUTO) 0.1 10^3/uL (0.0-0.1); BASOPHILS % (AUTO) 1.8 %; EOSINOPHILS # (AUTO) 0.1 10^3/uL (0.0-0.7); EOSINOPHILS % (AUTO) 1.4 %; HCT - HEMATOCRIT 40.2 % (42.0-52.0); HGB - HEMOGLOBIN 11.8 g/dL (14.0-18.0); LYMPHOCYTES # (AUTO) 0.9 10^3/uL (1.5-3.5); LYMPHOCYTES % (AUTO) 21.4 %; MEAN CORPUSCULAR HEMOGLOBIN 23.8 pg (27.0-31.0); MEAN CORPUSCULAR HGB CONC 29.4 g/dL (32.0-36.0); MEAN CORPUSCULAR VOLUME 81.2 fL (80.0-94.0); MONOCYTES # (AUTO) 0.4 10^3/uL (0.0-1.0); NEUTROPHILS # (AUTO) 2.9 10^3/uL (1.5-6.6); NEUTROPHILS % (AUTO) 65.4 %; PLT - PLATELET COUNT 228 10^3/uL (130-450); RED BLOOD COUNT 4.95 10^6/uL (4.70-6.10); WHITE BLOOD COUNT 4.4 x10^3/uL (4.8-10.8)
[2021-12-30 18:38] LABS: % IRON SATURATION 27 % (20-50); IRON 109 ug/dL (45-182); TOTAL IRON BINDING CAPACITY 410 ug/dL (250-450); TRANSFERRIN 293 mg/dL (180-329)
[2021-12-30 18:54] LABS: PLATELET ESTIMATE, MANUAL NORMAL (130-450,000) (NORMAL); PLATELET MORPHOLOGY 1+ GIANT PLATELETS (NORMAL); SLIDE REVIEW? Indicated
[2021-12-30 18:55] LABS: WBC MORPHOLOGY (MULTIPLE) NORMAL APPEARANCE (NORMAL)
== END 2021-12-30 23:59 | disposition home or self-care (01) ==
LOC: LAB.N 08:00
PROVIDERS: ATTEND Registered Nurse
DX: D50.0 Iron deficiency anemia secondary to blood loss (chronic) (principal); R53.83 Other fatigue
CPT/HCPCS: 36415; 82728; 83540; 84466; 85025